=== PATIENT | male | born 1955 | race Caucasian/White ===

== ENCOUNTER → 2022-01-27 | Outpatient (CLI) | payer OTHER | END | disposition home or self-care (01) | LOC: LAB SHORT 12:29 → LAB 12:29 | DX: R31.9 Hematuria, unspecified (principal) | CPT/HCPCS: 87086 ==

== ENCOUNTER 2023-10-26 07:09 | Day surgery (SDC) | payer MEDICARE ==
[2023-10-26] VITALS (20 sets, daily range): BP systolic 96–133; BP diastolic 68–95
[~2023-10-26] VITALS: Ht 190.5 cm; Wt 94.8 kg
[~2023-10-26 07:09] MED LIST: Lactated Ringer's 1,000 ML IV SCH
[2023-10-26] MEDS ORDERED: propofoL 40 ML IV ONE (07:12)
--- NOTE | 2023-10-26 07:51 | NUR ---
Ambulatory in Day Surgery. History, Chart, Medications and Allergies reviewed before start of procedure. Lungs clear T/O to Auscultation. Patient confirms NPO status and agrees with scheduled surgery. Pre-Op teaching done. Pt verbalizes understanding. Patient States Post-Procedure ride home has been arranged.
--- NOTE | 2023-10-26 08:03 | NUR ---
10/26/23 0802 Naye Read HISTORY, CHART, MEDICATIONS AND ALLERGIES REVIEWED BEFORE START OF PROCEDURE. PATIENT CONFIRMS NPO STATUS AND AGREES WITH SCHEDULED PROCEDURE. 3-LEAD EKG REVIEWED WITH PHYSICIAN PRIOR TO START OF PROCEDURE. MONITOR INTACT WITH CONTINUOUS PULSE OXIMETRY,CAPNOGRAPHY, 3-LEAD EKG, INTERMITTENT BP. SUPPLEMENTAL O2 TO BE TITRATED THROUGHOUT PROCEDURE TO MAINTAIN O2 SATURATION ABOVE 90%. PATIENT DETERMINED TO BE ASA APPROPRIATE FOR PROPOFOL SEDATION PRIOR TO START OF PROCEDURE BY DR. MONTALVO. MALLAMPATI CLASS 3 AIRWAY: VISUALIZATION OF ONLY THE BASE OF THE UVULA.
[2023-10-26] MEDS ORDERED: Midazolam HCl 1MG / ML 2ML Vial ONE (08:06)
--- NOTE | 2023-10-26 09:10 | NUR ---
Patient up to Ambulate independently. Gait steady. Discharge instructions reviewed with patient. Patient verbalizes understanding. Copy given to patient to take home.Pt discharged to home, out via wheelchair with discharge instructions and belongings on hand.
== END 2023-10-26 09:10 | disposition home or self-care (01) ==
LOC: ORSCMMR 07:09 → ORD 08:00 → ORSCMMR 08:00
PROVIDERS: Internal Medicine Gastroenterology
PROC: 0DBN8ZX Excision of Sigmoid Colon, Via Natural or Artificial Opening Endoscopic, Diagnostic (ICD-10-PCS; principal; 2023-10-26 08:00)
PROC: 0DBM8ZX Excision of Descending Colon, Via Natural or Artificial Opening Endoscopic, Diagnostic (ICD-10-PCS; principal; 2023-10-26 08:00)
PROC: 0DBP8ZX Excision of Rectum, Via Natural or Artificial Opening Endoscopic, Diagnostic (ICD-10-PCS; principal; 2023-10-26 08:00)
PROC: 0DBL8ZX Excision of Transverse Colon, Via Natural or Artificial Opening Endoscopic, Diagnostic (ICD-10-PCS; principal; 2023-10-26 08:00)
DX: Z12.11 Encounter for screening for malignant neoplasm of colon (principal); D12.3 Benign neoplasm of transverse colon; D12.4 Benign neoplasm of descending colon; K62.1 Rectal polyp; K63.5 Polyp of colon; K57.30 Diverticulosis of large intestine without perforation or abscess without bleeding
CPT/HCPCS: 88305; J2250; J2704; J7120